=== PATIENT | male | born 1985 | race Caucasian/White ===

== ENCOUNTER 2018-12-17 15:07 | Outpatient (CLI) | payer OTHER | END 2018-12-17 15:26 | disposition home or self-care (01) | LOC: LAB 15:07 | DX: R05 Cough (principal) ==

== ENCOUNTER 2019-10-10 15:57 | Outpatient (CLI) | payer OTHER | END 2019-10-10 16:03 | disposition home or self-care (01) | LOC: LAB 15:57 | PROVIDERS: ATTEND General Practice | DX: J11.1 Influenza due to unidentified influenza virus with other respiratory manifestations (principal); Z20.828 Contact with and (suspected) exposure to other viral communicable diseases; R05 Cough; Z11.59 Encounter for screening for other viral diseases ==